=== PATIENT | female | born 1955 | race Caucasian/White ===

== ENCOUNTER 2016-09-01 19:38 | Emergency (ER) | payer OTHER ==
[~2016-09-01] VITALS: Ht 152.4 cm; Wt 61.6 kg
[~2016-09-01 19:38] MED LIST: B-COTAB18 PO; CALC-478 PO; ZNTT/150 PO
[2016-09-01 19:45] VITALS: TEMP 37.5; Ht 152.4 cm; Wt 61.6 kg
[2016-09-01] MEDS ORDERED: MoRPHine SULFATE 4 MG/ML 1 ML CARP\\VIAL IM STA (20:04)
[2016-09-01] MEDS ORDERED: PROMETHAZINE HCL INJ 25 MG/ML 1 ML VIAL IM STA (20:04)
--- NOTE | 2016-09-01 20:16 | EMERGENCY ROOM VISIT NOTE ---
History Report prepared by Tova: Nathaly Rehman Under the Supervision of: Dr. Thong Miles D.O. First contact with patient: 19:55 Chief Complaint: HEADACHE Stated Complaint: HEADACHE,NAUSEA History of Present Illness The patient is a 60 year old female who presents to the Emergency Room with complaints of a gradually worsening migraine starting 1 days [employer]. The patient currently rates the pain as a 9/10 in severity. She states that the pain is located on her left side and around her eyes. The patient states that she has a history of headaches and migraines but states she has not had a migraine as severe as today in a few years. The patient states that she can go months without any headaches but some months she has several headaches. The patient also associates nausea and chills with her headache. She denies any neck stiffness, vomiting, fevers, weakness in legs. The patient states she took Maxalt for her migraine but it did not resolve her symptoms. Source of History: patient Onset: 1 day ENV[employer]ONMENTAL EM[employer]CI[employer]NER Position: head (left sided and surronding eyes) Symptom Intensity: 9/10 Timing: worsening (gradually) Associated Symptoms: + chills, + nausea, No fevers, No vomiting Note: Patient denies any neck stiffness, weakness in legs Review of Systems See HPI for pertinent positives & negatives. A total of 10 systems reviewed and were otherwise negative. Past Medical & Surgical Medical Problems: (1) No significant medical problems Family History Patient reports no known family medical history. Social History Smoking Status: Never Smoker Marital Status: Housing Status: lives with family Occupation Status: employed Current/Historical Medications Scheduled B-Complex Vitamins (Vitamin B Complex), 1 TAB PO QAM Calcium Carbonate-Vitamin D W/ (Caltrate 600 Plus), 1 TAB PO DAILY Lactobacillus (Acidophilus), 1 TAB PO DAILY Rizatriptan Benzoate (Rizatriptan Benzoate), 10 MG PO PRN UD Thiamine Hcl (Vitamin B-1), 1 MG PO DAILY Scheduled PRN Ranitidine (Zantac), 1 TAB PO BID PRN for Indigestion Allergies Coded Allergies: Sulfamethoxazole w/Trimethoprim (Unverified Adverse Reaction, Unknown, VOMITING, 02/01/16) Physical Exam Vital Signs Date Time Temp Pulse Resp B/P Pulse Ox O2 Delivery O2 Flow Rate FiO2 09/01/16 22:47 84 18 127/88 98 09/01/16 21:45 89 16 138/90 93 Room Air 09/01/16 19:45 37.5 120 18 135/83 96 Room Air Physical Exam GENERAL: Patient is awake, alert, uncomfortable appearing. EYES: The conjunctivae are clear. The pupils are round and reactive. EARS, NOSE, MOUTH AND THROAT: The nose is without any evidence of any deformity. Mucous membranes are moist tongue is midline NECK: The neck is nontender and supple. RESPIRATORY: Normal respiratory effort is noted there is no evidence of wheezing rhonchi or rales CARDIOVASCULAR: Regular rate and rhythm noted there no murmurs rubs or gallops normal S1 normal S2 GASTROINTESTINAL: The abdomen is soft. Bowel sounds are present in all quadrants. Abdomen is nontender MUSCULOSKELETAL/EXTREMITIES: There is no evidence of gross deformity full range of motion is noted in the hips and shoulders SKIN: There is no obvious evidence of any rash. There are no petechiae, pallor or cyanosis noted. NEUROLOGIC: Patient is awake alert and oriented x3. Medical Decision & Procedures ER Provider Diagnostic Interpretation: X-ray results as stated below per interpretation by me and the radiologist. CT SCAN OF THE BRAIN WITHOUT IV CONTRAST CLINICAL HISTORY: Headache. COMPARISON STUDY: MRI of the brain dated 01/20/2015. TECHNIQUE: Unenhanced axial CT scan of the brain is performed from the vertex to the skull base. Automated dose control exposure was utilized. CT DOSE: 537.48 mGy.cm FINDINGS: Brain parenchyma: The brain parenchyma is normal in appearance. There is no hemorrhage, mass effect, or evidence of acute territorial ischemia by CT criteria. Abraham-white matter is preserved. No extra-axial fluid collection is seen. Ventricles, sulci, cisterns: Normal in configuration. Intracranial vasculature: There is mild atherosclerotic calcification of the cavernous carotid arteries. Calvarium: Unremarkable. Sinuses and mastoids: Findings are consistent with previous paranasal sinus surgery. The visualized paranasal sinuses are clear. There is a left mastoid effusion. The right mastoid air cells are well pneumatized. Orbits: The bony orbits are grossly intact. IMPRESSION: No acute intracranial abnormality. Electronically signed by: Alex Higgins M.D. 09/01/2016 8:31 PM Dictated Date/Time: 09/01/2016 8:29 PM Medications Administered Medications (Trade) Dose Ordered Sig/Long Route Start Time Stop Time Status Last Admin Dose Admin Promethazine HCl (Phenergan Inj) 25 mg NOW STAT IM 09/01/16 20:04 09/01/16 20:05 DC 09/01/16 20:12 25 MG Morphine Sulfate (MoRPHine SULFATE INJ) 4 mg NOW STAT IM 09/01/16 20:04 09/01/16 20:05 DC 09/01/16 20:13 4 MG Oxycodone HCl (Roxicodone Immediate Rel 5MG Home Pack) 1 homepack UD ONCE PO 09/01/16 22:30 09/01/16 22:31 DC 09/01/16 22:42 1 HOMEPACK ED Course 1999: The patient was evaluated in room B10. A complete history and physical examination were performed. 2003: Ordered Morphine Sulfate 4 mg IM Phenergan Inj 25 mg IM. 0: Upon reevaluation, the patient is hemodynamically stable. I discussed the results and treatment plan with her. She verbalized agreement of the treatment plan. The patient was discharged home. 2229: Ordered Oxycodone HCl 1 homepack PO. Medical Decision Differential diagnosis: Etiologies such as migraine headache, meningitis, sinusitis, CO exposure, ICH, SAH, infection, tumor, headache, sinus thrombosis, arterial dissection, as well as others were entertained. Nursing notes reviewed. The patient is a 60-year-old female who presented to the emergency department for an evaluation of headache. The patient has a history of chronic headache states that this headache is more severe than her usual headache. She does state that the location is similar to previous headaches. She had no meningismus. She has no focal neurologic deficits. She had fever. The headache was gradually worsening and not acute in onset. The patient had a CT in the emergency department. I discussed the patient's CT report with her. The patient was treated with pain medication and antiemetics. On subsequent reevaluation she was feeling much better. She was encouraged to rest and avoid any strenuous activity. She was also encouraged to follow-up with her primary care physician as soon as possible return to the emergency department immediately if symptoms change worsen or if the need arises. Impression Primary Impression: Migraine Additional Impression: Headache Scribe Attestation The scribe's documentation has been prepared under my direction and personally reviewed by me in its entirety. I confirm that the note above accurately reflects all work, treatment, procedures, and medical decision making performed by me. Departure Information Dispostion Home / Self-Care Referrals Anni Garcia D.O. (PCP) Forms HOME CARE DOCUMENTATION FORM, IMPORTANT VISIT INFORMATION Patient Instructions My [facility] Additional Instructions Continue all medications as prescribed. Call your primary care physician to schedule a follow up appointment. Return to the emergency department if symptoms change worsen or if the need arises. Problem Qualifiers
--- NOTE | 2016-09-01 20:33 | DIAGNOSTIC IMAGING REPORT ---
CT SCAN OF THE BRAIN WITHOUT IV CONTRAST CLINICAL HISTORY: Headache. COMPARISON STUDY: MRI of the brain dated 01/20/2015. TECHNIQUE: Unenhanced axial CT scan of the brain is performed from the vertex to the skull base. Automated dose control exposure was utilized. CT DOSE: 537.48 mGy.cm FINDINGS: Brain parenchyma: The brain parenchyma is normal in appearance. There is no hemorrhage, mass effect, or evidence of acute territorial ischemia by CT criteria. Abraham-white matter is preserved. No extra-axial fluid collection is seen. Ventricles, sulci, cisterns: Normal in configuration. Intracranial vasculature: There is mild atherosclerotic calcification of the cavernous carotid arteries. Calvarium: Unremarkable. Sinuses and mastoids: Findings are consistent with previous paranasal sinus surgery. The visualized paranasal sinuses are clear. There is a left mastoid effusion. The right mastoid air cells are well pneumatized. Orbits: The bony orbits are grossly intact. IMPRESSION: No acute intracranial abnormality. Electronically signed by: Alex Higgins M.D. 09/01/2016 8:31 PM Dictated Date/Time: 09/01/2016 8:29 PM
[2016-09-01] MEDS ORDERED: RIZA1TAB11 PO (20:54)
[2016-09-01] MEDS ORDERED: CALCTAB7 PO (20:54)
[2016-09-01] MEDS ORDERED: THIA100T11 PO (20:54)
[2016-09-01] MEDS ORDERED: LACTTAB7 PO (20:54)
[2016-09-01] MEDS ORDERED: OXYCODONE IR HOME PACK PO ONE (22:30)
[2016-09-01 22:47] VITALS: BP 127/88; PULSE 84; O2SAT 98
== END 2016-09-01 22:49 | disposition home or self-care (01) ==
LOC: C.EDB 19:39
DX: G43.909 Migraine, unspecified, not intractable, without status migrainosus (principal)

== ENCOUNTER 2017-12-22 09:12 | Emergency (ER) | payer OTHER ==
[~2017-12-22] VITALS: Ht 154.9 cm; Wt 64.2 kg
[~2017-12-22 09:12] MED LIST changes: -CALC-478 PO; +CALCTAB7 PO; +LACTTAB7 PO; +RANI150T85 PO; +RIZA1TAB11 PO; +THIA100T11 PO; -ZNTT/150 PO
[2017-12-22 09:20] VITALS: TEMP 36.6; Ht 154.9 cm; Wt 64.2 kg
[2017-12-22] MEDS ORDERED: KETOROLAC TROMETHAMINE 60 MG/2 ML VIAL IM STA (09:32)
[2017-12-22] MEDS ORDERED: OMEP20CA9 PO (09:38)
[2017-12-22] MEDS ORDERED: CETI10CA PO (09:38)
[2017-12-22] MEDS ORDERED: PSEU30TA3 PO (09:38)
[2017-12-22] MEDS ORDERED: ONDANSETRON 4MG OD TAB PO ONE (09:45)
[2017-12-22] MEDS ORDERED: AMOXICILLIN/CLAVULANATE TAB 875 MG TAB PO ONE (09:45)
--- NOTE | 2017-12-22 09:47 | EMERGENCY ROOM VISIT NOTE ---
History Report prepared by Tova: Matthew Andrews Under the Supervision of: Dr. Thong Miles D.O. First contact with patient: 09:22 Chief Complaint: HEADACHE Stated Complaint: SINUS PAIN,HEADACHE,NAUSEA History of Present Illness The patient is a 62 year old female who presents to the Emergency Room with complaints of a worsening headache that began 9 hours ago. She states that the headache caused her to wake up. Patient states that the headache is located near her forehead and behind her eyes. She states that she also has nausea. Patient adds that she has a history of sinus infections and migraines. She states that she has not had a CT scan for her sinus issues, only that they " look down her throat". Patient states that she uses Zyrtec daily. She denies any current medical problems. Patient denies any trouble coughing neck stiffness , or weakness in her arms and leg. She states that her family doctor is Dr. Garcia. She states that she has not seen Dr. Garcia for her current symptoms. Source of History: patient Onset: 9 hours ago Position: head, eye (behind) Timing: worsening Associated Symptoms: + nausea, No weakness Review of Systems See HPI for pertinent positives & negatives. A total of 10 systems reviewed and were otherwise negative. Past Medical & Surgical Medical Problems: (1) Deviated septum (2) No significant medical problems Surgical Problems: (1) Hx of removal of ovary Family History Cancer Lung disease Social History Smoking Status: Never Smoker Marital Status: Housing Status: lives with family Occupation Status: employed Current/Historical Medications Scheduled Amoxicillin & Pot Clavulanate (Augmentin 875-125 mg), 875 MG PO BID Calcium Carbonate-Vitamin D W/ (Caltrate 600 Plus), 1 TAB PO DAILY Cetirizine Hcl (Zyrtec Allergy), 10 MG PO DAILY Omeprazole (Prilosec), 20 MG PO QAM Rizatriptan Benzoate (Rizatriptan Benzoate), 10 MG PO PRN UD Scheduled PRN Oxycodone Immediate Rel Tab (Roxicodone Ir), 1 TAB PO Q4H PRN for Severe Pain Pseudoephedrine Hcl (Sudafed Nasal Decongestan), 1 TAB PO Q4H PRN for ALLERGIES Allergies Coded Allergies: Sulfamethoxazole w/Trimethoprim (Unverified Adverse Reaction, Unknown, VOMITING, 12/22/17) Physical Exam Vital Signs Date Time Temp Pulse Resp B/P (MAP) Pulse Ox O2 Delivery O2 Flow Rate FiO2 12/22/17 10:41 80 16 133/79 97 12/22/17 09:20 36.6 101 20 158/78 96 Room Air Physical Exam GENERAL: Patient is awake, alert, and in no acute distress. Patient is resting comfortably and showing no signs of anxiety EYES: The conjunctivae are clear. The pupils are round and reactive. EARS, NOSE, MOUTH AND THROAT: The nose is without any evidence of any deformity. Mucous membranes are moist tongue is midline NECK: The neck is nontender and supple. RESPIRATORY: Normal respiratory effort is noted there is no evidence of wheezing rhonchi or rales CARDIOVASCULAR: Regular rate and rhythm noted there no murmurs rubs or gallops normal S1 normal S2 GASTROINTESTINAL: The abdomen is soft. Bowel sounds are present in all quadrants. Abdomen is nontender MUSCULOSKELETAL/EXTREMITIES: There is no evidence of gross deformity full range of motion is noted in the hips and shoulders SKIN: There is no obvious evidence of any rash. There are no petechiae, pallor or cyanosis noted. NEUROLOGIC: Patient is awake alert and oriented x3 strength is symmetric patellar reflexes are 2+ bilaterally Medical Decision & Procedures ER Provider Diagnostic Interpretation: Radiology results as stated below per my review and radiologist interpretation: HEAD WITHOUT CONTRAST (CT) CLINICAL HISTORY: 62 years-old Female presenting with pain, headache, sinus pain and pressure, history of migraines. TECHNIQUE: Multidetector CT imaging of the head was performed without the use of intravenous contrast. IV contrast: None. A dose lowering technique was used consistent with the principles of ALARA (as low as reasonably achievable). COMPARISON: 09/01/2016. CT DOSE (mGy.cm): The estimated cumulative dose is 1180.33. FINDINGS: Plush Brusher topogram: Unremarkable. Ventricles and sulci normal in size. Brain parenchyma normal in appearance with preserved duque-white differentiation. No mass effect or midline shift. No hemorrhage or acute territorial infarct. No extra-axial fluid collection. Paranasal sinuses and mastoid air cells clear. Calvarium intact. IMPRESSION: 1. No acute intracranial abnormality. Electronically signed by: Yonas Ac M.D. 12/22/2017 9:59 AM SINUSES-MAXILLOFACIAL W/O CLINICAL HISTORY: 62 years-old Female presenting with pain, sinus pressure headache. TECHNIQUE: Multidetector CT of the sinuses was performed without the use of intravenous contrast. IV contrast: None. A dose lowering technique was used consistent with the principles of ALARA (as low as reasonably achievable). COMPARISON: Plain radiographs from 02/18/2007. CT DOSE (mGy.cm): The estimated cumulative dose is 1180.33. FINDINGS: Plush Brusher topogram: Unremarkable. Polypoid mucosal thickening in the left maxillary sinus. Fluid noted in the right mastoid air cells. Middle ears clear. Aerated secretions in the nasopharynx. Nasal septal perforation noted. Ostiomeatal units patent. Nasofrontal ethmoidal recesses patent. No significant anatomic variant. No bony the carotid siphons or optic canals. Limited intracranial evaluation within normal limits. Orbits normal. Superficial soft tissues of the face normal. Upper cervical spine normal. IMPRESSION: No current evidence of acute or chronic sinusitis. Electronically signed by: Yonas Ac M.D. 12/22/2017 10:04 AM Medications Administered Medications (Trade) Dose Ordered Sig/Long Route Start Time Stop Time Status Last Admin Dose Admin Ketorolac Tromethamine (Toradol Inj) 60 mg NOW STAT IM 12/22/17 09:32 12/22/17 09:33 DC 12/22/17 10:08 60 MG Ondansetron HCl (Zofran Odt) 4 mg ONE ONCE PO 12/22/17 09:45 12/22/17 09:46 DC 12/22/17 10:07 4 MG Amoxicillin/ Clavulanate Potassium (Augmentin Tab) 875 mg ONE ONCE PO 12/22/17 09:45 12/22/17 09:46 DC 12/22/17 10:07 875 MG ED Course 0923: The patient was evaluated in room A3. A complete history and physical examination were performed. 0932: Toradol Inj 60mg IM 0945: Augmentin Tab 875mg PO and Zofran Odt 4mg PO 1032: Upon reevaluation, the patient is resting comfortably. I discussed the results and treatment plan with her. She verbalized agreement of the treatment plan. She was discharged home. Medical Decision Prior records/ancillary studies reviewed. Triage Nursing notes reviewed. The patient's history was concerning for headache. Differential diagnosis: Etiologies such as migraine headache, meningitis, sinusitis, CO exposure, ICH, SAH, infection, tumor, headache, sinus thrombosis, arterial dissection, as well as others were entertained. The patient is a 62-year-old female who presented to the emergency department for an evaluation of headache. The patient complained of frontal headache with sinus congestion. She was taking [id number] decongestants with some relief. The patient did not have any focal neurologic deficit. She did not have any meningismus or fever. I discussed the patient's radiographic studies with her. She was concerned that she did have an infection even though there was no signs of fluid on sinus CT. She was given a prescription for antibiotic and encouraged to continue all medications as prescribed. She is also encouraged to call her family doctor to schedule follow-up appointment but return to the emergency department immediately if symptoms change worsen or the need arises. Medication Reconcilliation Current Medication List: was personally reviewed by me Blood Pressure Screening Patient's blood pressure: Elevated blood pressure Blood pressure disposition: Elevated BP felt to be situational Impression Primary Impression: Frontal headache Scribe Attestation The scribe's documentation has been prepared under my direction and personally reviewed by me in its entirety. I confirm that the note above accurately reflects all work, treatment, procedures, and medical decision making performed by me. Departure Information Dispostion Home / Self-Care Prescriptions Oxycodone Immediate Rel Tab (ROXICODONE IR) 5 Mg Tab 1 TAB PO Q4H Y for Severe Pain, #15 TAB Prov: Thong Miles, DO 12/22/17 Amoxicillin & Pot Clavulanate (Augmentin 875-125 mg) 1 Tab Tab 875 MG PO BID for 7 Days, #14 TAB Prov: Thong Miles, DO 12/22/17 Referrals No Doctor, Assigned (PCP) Forms HOME CARE DOCUMENTATION FORM, IMPORTANT VISIT INFORMATION Patient Instructions Headache Pain, My [facility] Additional Instructions Continue all medications as prescribed. Continue using Motrin and Tylenol as directed for mild pain. Continue all other medications such as nasal spray for symptomatically. Follow-up with your family doctor for further evaluation. Return to the emergency department immediately symptoms change worsen or the need arises.
--- NOTE | 2017-12-22 10:00 | DIAGNOSTIC IMAGING REPORT ---
HEAD WITHOUT CONTRAST (CT) CLINICAL HISTORY: 62 years-old Female presenting with pain, headache, sinus pain and pressure, history of migraines. TECHNIQUE: Multidetector CT imaging of the head was performed without the use of intravenous contrast. IV contrast: None. A dose lowering technique was used consistent with the principles of ALARA (as low as reasonably achievable). COMPARISON: 09/01/2016. CT DOSE (mGy.cm): The estimated cumulative dose is 1180.33. FINDINGS: Airbrush Artist Photography topogram: Unremarkable. Ventricles and sulci normal in size. Brain parenchyma normal in appearance with preserved duque-white differentiation. No mass effect or midline shift. No hemorrhage or acute territorial infarct. No extra-axial fluid collection. Paranasal sinuses and mastoid air cells clear. Calvarium intact. IMPRESSION: 1. No acute intracranial abnormality. Electronically signed by: Yonas Ac M.D. 12/22/2017 9:59 AM Dictated Date/Time: 12/22/2017 9:56 AM
--- NOTE | 2017-12-22 10:06 | DIAGNOSTIC IMAGING REPORT ---
SINUSES-MAXILLOFACIAL W/O CLINICAL HISTORY: 62 years-old Female presenting with pain, sinus pressure headache. TECHNIQUE: Multidetector CT of the sinuses was performed without the use of intravenous contrast. IV contrast: None. A dose lowering technique was used consistent with the principles of ALARA (as low as reasonably achievable). COMPARISON: Plain radiographs from 02/18/2007. CT DOSE (mGy.cm): The estimated cumulative dose is 1180.33. FINDINGS: Knock Up Assembler topogram: Unremarkable. Polypoid mucosal thickening in the left maxillary sinus. Fluid noted in the right mastoid air cells. Middle ears clear. Aerated secretions in the nasopharynx. Nasal septal perforation noted. Ostiomeatal units patent. Nasofrontal ethmoidal recesses patent. No significant anatomic variant. No bony the carotid siphons or optic canals. Limited intracranial evaluation within normal limits. Orbits normal. Superficial soft tissues of the face normal. Upper cervical spine normal. IMPRESSION: No current evidence of acute or chronic sinusitis. Electronically signed by: Yonas Ac M.D. 12/22/2017 10:04 AM Dictated Date/Time: 12/22/2017 9:59 AM
[2017-12-22] MEDS ORDERED: OXYC1TAB3 PO (10:28)
[2017-12-22] MEDS ORDERED: AMOX875T PO (10:28)
[2017-12-22 10:41] VITALS: BP 133/79; PULSE 80; O2SAT 97
== END 2017-12-22 10:43 | disposition home or self-care (01) ==
LOC: C.EDB 09:14 → C.EDA 10:43
DX: R51 Headache (principal); R11.0 Nausea; R03.0 Elevated blood-pressure reading, without diagnosis of hypertension; Z88.2 Allergy status to sulfonamides; Z79.899 Other long term (current) drug therapy